=== PATIENT | female | born 1955 ===

== ENCOUNTER 2018-10-27 00:55 | Outpatient (RCR) | payer BC, SELFPAY | END 2018-11-16 23:59 | disposition home or self-care (01) | LOC: INF 00:55 | PROVIDERS: PCP Family Medicine; Visit Provider Internal Medicine Hematology & Oncology ==

== ENCOUNTER 2018-11-17 01:03 | Outpatient (RCR) | payer BC, SELFPAY | END 2018-12-17 23:59 | disposition home or self-care (01) | LOC: INF 01:03 | PROVIDERS: PCP Family Medicine; Visit Provider Internal Medicine Hematology & Oncology | DX: R69 Illness, unspecified (principal) ==